=== PATIENT | female | born 1960 | race African-American/Black ===

== ENCOUNTER 2020-01-16 16:19 | Emergency (ER) | payer OTHER ==
[~2020-01-16] VITALS: Ht 152.4 cm; Wt 63.5 kg
[2020-01-16 19:33] LABS: ABSOLUTE NEUTROPHILS 2.8 thou/uL (1.4-8.2); BASOPHILS 1.8 % (0.0-2.0); EOSINOPHILS 2.9 % (0.0-3.0); HEMATOCRIT 36.8 % (37.0-47.0); HEMOGLOBIN 12.1 gm/dL (12.0-15.0); LYMPHOCYTES 43.2 % (24.0-44.0); MCH 27.2 pg (26.0-34.0); MCV 82.5 fL (80.0-100.0); MONOCYTES 3.9 % (1.0-8.0); PLATELET COUNT 241 thou/uL (150-400); POLYS 48.2 % (36.0-66.0); RBC 4.46 mil/uL (4.20-5.00); WBC 5.9 thou/uL (4.0-11.0)
[2020-01-16 19:39] LABS: ANION GAP 10 mmol/L (7-16); BUN 35 mg/dL (7-18); CALCIUM 8.6 mg/dL (8.5-10.1); CHLORIDE 106 mmol/L (98-107); CO2 25 mmol/L (21-32); CREATININE 2.6 mg/dL (0.6-1.0); GLUCOSE 86 mg/dL (74-106); POTASSIUM 4.6 mmol/L (3.5-5.1); SODIUM 141 mmol/L (136-145)
[2020-01-16 19:48] LABS: TROPONIN-I <0.06 ng/mL (<0.06)
[2020-01-16] MEDS ORDERED: LASIX 40 MG TAB40 MG PO (21:02)
[2020-01-16 21:09] VITALS: BP 184/112
--- NOTE | 2020-01-17 07:45 | EKG ---
[facility] [place] [address] ELECTROCARDIOGRAM REPORT Name: DELL MANDUJANO Room #: DEP [facility]#: [id number] Admission: 01/16/20 Attend Phys: Discharge: 01/16/20 Date of : 56 Report #: [id number] THIS REPORT FOR: cc: Nate Morel MD, John MD Lundgren,Madhu Guerin MD [facility] ~ THIS REPORT FOR: //name// [facility] ED Test Date: 2020-01-16 Test Time: 20:04:14 Pat Name: DELL MANDUJANO Department: Room: Gender: F Home Care Chaplain: : 1960 Requested By: Roly Chirinos Order Number: [id number] MD: Madhu Carrasco Measurements Intervals [place] Rate: 72 P: 59 TN: 168 QRS: -26 QRSD: 89 T: 48 QT: 435 QTc: 477 Interpretive Statements Sinus rhythm Poor R wave progression No previous ECG available for comparison Electronically Signed On 01-17-2020 7:44:51 CDT by Madhu Carrasco [email or web address] <ELECTRONICALLY SIGNED> By: Madhu Carrasco MD, [facility] 01/17/20 0744 03 03 Madhu Carrasco MD, FACC /EPI
== END 2020-01-16 21:09 | disposition left against medical advice (07) ==
LOC: ER 16:19
PROVIDERS: Emergency Medicine
DX: I16.0 Hypertensive urgency (principal); N17.9 Acute kidney failure, unspecified; E11.9 Type 2 diabetes mellitus without complications; R22.43 Localized swelling, mass and lump, lower limb, bilateral; F17.210 Nicotine dependence, cigarettes, uncomplicated

== ENCOUNTER 2020-02-08 16:11 | Inpatient (IN) | payer OTHER ==
[~2020-02-08] VITALS: Ht 149.9 cm; Wt 51.9 kg
[~2020-02-08 16:11] MED LIST: LASIX 40 MG TAB40 MG PO
[2020-02-08 16:20] VITALS: BP 181/118
[2020-02-08 16:58] LABS: BASOPHILS 0.9 % (0.0-2.0); EOSINOPHILS 2.1 % (0.0-3.0); HEMOGLOBIN 12.1 gm/dL (12.0-15.0); MCHC 32.5 g/dL (28.0-37.0)
[2020-02-08 17:00] LABS: ABSOLUTE NEUTROPHILS 3.3 thou/uL (1.4-8.2); HEMATOCRIT 37.3 % (37.0-47.0); LYMPHOCYTES 46.2 % (24.0-44.0); MCV 83.1 fL (80.0-100.0); MONOCYTES 5.6 % (1.0-8.0); POLYS 45.2 % (36.0-66.0); RBC 4.49 mil/uL (4.20-5.00); WBC 10.7 thou/uL (4.0-11.0)
[2020-02-08] MEDS ORDERED: ROSUVASTATIN CA10 MG PO ×2 (17:04)
[2020-02-08] MEDS ORDERED: CLONIDINE HCL0.1 MG PO ×2 (17:04)
[2020-02-08] MEDS ORDERED: NORVASC5 MG PO ×2 (17:04)
[2020-02-08] MEDS ORDERED: TRADJENTA5 MG (17:04)
[2020-02-08] MEDS ORDERED: HYDROCHLOROTHIA25 M2 PO ×2 (17:04)
[2020-02-08] MEDS ORDERED: LISINOPRIL40 MG PO ×2 (17:04)
[2020-02-08 17:05] LABS: ANION GAP 13 mmol/L (7-16); BUN 60 mg/dL (7-18); CHLORIDE 107 mmol/L (98-107); CO2 23 mmol/L (21-32); CREATININE 3.2 mg/dL (0.6-1.0); GLUCOSE 97 mg/dL (74-106); POTASSIUM 5.4 mmol/L (3.5-5.1); SODIUM 143 mmol/L (136-145)
[2020-02-08] MEDS ORDERED: PROAIR HFA8.5 GM INH (17:05)
[2020-02-08 17:11] LABS: APTT 21.5 Seconds (24.5-32.8); PROTIME 9.6 Seconds (9.3-11.4)
[2020-02-08 17:14] LABS: ALBUMIN 2.9 g/dL (3.4-5.0); SGOT 19 U/L (15-37); SGPT 14 U/L (30-65); TOTAL BILIRUBIN 0.3 mg/dL (0.2-1.0); TOTAL PROTEIN 6.9 g/dL (6.4-8.2); TROPONIN-I <0.06 ng/mL (<0.06)
[2020-02-08 17:24] LABS: PLATELET COUNT 218 thou/uL (150-400)
[2020-02-08 19:35] VITALS: BP 182/95
--- NOTE | 2020-02-08 19:39 | NUR ---
TRAMAINE RASMUSSENTON-DAUGHTER AT BEDSIDE [phone]
[2020-02-08 19:41] VITALS: BP 193/100
[2020-02-08 21:10] VITALS: BP 228/109
--- NOTE | 2020-02-08 23:00 | NUR ---
PATIENT ARRIVAL TO CCU VIA CART FROM ED, DENIES PAIN, INITIAL NIHSS CONDUCTED, DGT AT BEDSIDE TO ANSWER QUESTIONS
[2020-02-09] VITALS (53 sets, daily range): BP systolic 136–246; BP diastolic 69–113
[2020-02-09 04:06] LABS: GLYCOHEMOGLOBIN (HGB A1C) 5.7 % (4.8-5.6)
[2020-02-09 05:42] LABS: HEMATOCRIT 37.9 % (37.0-47.0); HEMOGLOBIN 12.3 gm/dL (12.0-15.0); MCH 26.8 pg (26.0-34.0); MCHC 32.4 g/dL (28.0-37.0); MCV 82.8 fL (80.0-100.0); RBC 4.58 mil/uL (4.20-5.00); RDW 12.9 % (10.5-14.5)
[2020-02-09 06:08] LABS: ANION GAP 15 mmol/L (7-16); BUN 54 mg/dL (7-18); CALCIUM 9.4 mg/dL (8.5-10.1); CHLORIDE 107 mmol/L (98-107); CHOLESTEROL 244 mg/dL (<200); CO2 19 mmol/L (21-32); CREATININE 2.9 mg/dL (0.6-1.0); GLUCOSE 89 mg/dL (74-106); HDL CHOLESTEROL 80 mg/dL (>40); LDL CHOLESTEROL 135 mg/dL (<100); MAGNESIUM 1.9 mg/dL (1.8-2.4); SODIUM 141 mmol/L (136-145); TC:HDL 3.1 Ratio (Not establshd); TRIGLYCERIDE 146 mg/dL (<150); VLDL 29 mg/dL (<40)
[2020-02-09 06:10] LABS: POTASSIUM 4.2 mmol/L (3.5-5.1); SERUM ASSESSMENT Clear
--- NOTE | 2020-02-09 07:17 | NUR ---
ASSUMED PT CARE AT 0340 FROM CCU. PT DAVID ORIENTED TO SELF. NIH STROKE SCALE SCORED, HX OF DEMENTIA NOTED FROM H&P NOTES, BP ELEVATED. PT STARTED ON CARDENE GTT AT 0356. BP BEGAN TRENDING DOWN. PT IS INCONTINENT FOR URINE X2, ORDER FOR HUGGINS RECIEVED THIS AM. PT BECAME INCREASINGLY CONFUSED THIS AM AROUND 6AM STATING THAT SHE WANTS TO GO HOME, STARTED PICKING AT HER TELE PATCHES, 02 SAT PROBE, AND WAS TRYING TO GET OUT OF BED. DENISE JOHN NOTIFIED AND NEW ORDERS RECIEVED. PT APPEARS TO BE SETTLED IN BED NOW. WILL CONTINUE TO MONITOR.
--- NOTE | 2020-02-09 07:40 | EKG ---
[facility] [place] [address] ELECTROCARDIOGRAM REPORT Name: DELL MANDUJANO Room #: 245-P ADM IN M.R.#: [id number] Admission: 02/08/20 Attend Phys: Khoi Doe MD Discharge: Date of : 56 Report #: [id number] THIS REPORT FOR: cc: Nate Morel MD, John MD Santiago,[employer] ~ THIS REPORT FOR: //name// [facility] ED Test Date: 2020-02-08 Test Time: 16:25:29 Pat Name: DELL MANDUJANO Department: Room: [facility] Gender: F Building Principal: NO : 1960 Requested By: Tom Valadez Order Number: [id number] MD: Warner Swan Measurements Intervals [place] Rate: 54 P: 72 CT: 182 QRS: -15 QRSD: 106 T: 26 QT: 457 QTc: 434 Interpretive Statements Sinus rhythm Borderline left axis deviation Compared to ECG 01/16/2020 20:04:14 Poor R-wave progression no longer present Electronically Signed On 02-09-2020 7:39:50 CDT by Warner Swan [email or web address] <ELECTRONICALLY SIGNED> By: Warner Swan MD, FACC 02/09/20 0739 1625 1625 Warner Swan MD, [facility] /EPI
--- NOTE | 2020-02-09 09:22 | NUR ---
PER DEPT POLICY, Pilar BLOCK DEFERRED THIS A.M. S/P TX FROM CCU TO ICU. SPOKE W/RN, PT TO GO LATER FOR MRI. NEW ORDERS REQUESTED ONCE PT IS DEEMED APPROPRIATE TO PARTICIPATE IN FUNCTIONAL MOBILITY EVALUATION.
--- NOTE | 2020-02-09 11:33 | 2DMMODE ---
[facility] [place] [address] 2 D/M-MODE ECHOCARDIOGRAM Name: DELL MANDUJANO Room #: 245-P ADM IN M.R.#: [id number] Admission: 02/08/20 Attend Phys: Khoi Doe MD Discharge: Date of : 56 Report #: [id number] THIS REPORT FOR: cc: Nate Morel MD, John MD Santiago, Patrick MD [facility] ~ APPROVED REPORT Study performed: 02/09/2020 10:30:03 EXAM: Comprehensive 2D, Doppler, and color-flow Echocardiogram Patient Location: ICU Room #: 245 Status: routine BSA: 1.25 HR: 84 bpm BP: 173/83 mmHg Rhythm: NSR Other Information Study Quality: Good Indications [place]. Hx: HTN, HLP, DM, tob. Echo Enhancing Agent Comments: Patient had no IV access for a bubble study. 2D Dimensions RVDd: 35.06 mm IVSd: 12.00 (7-11mm) LVOT Diam: 20.00 (18-24mm) LVDd: 30.00 mm PWd: 12.00 (7-11mm) LVDs: 18.00 (25-40mm) Aortic Root: 27.55 mm Volumes Left Atrial Volume (Systole) Single Plane 4CH: 26.05 mL Single Plane 2CH: 31.90 mL LA ESV Index: 25.00 mL/m2 Aortic Valve AoV Peak Bryson.: 1.58 m/s [facility] [address] [place] [address] 2 D/M-MODE ECHOCARDIOGRAM Name: DELL MANDUJANO CHAVARRIA Room #: 245-P [facility] IN M.R.#: [id number] Admission: 02/08/20 Attend Phys: Khoi Doe, Discharge: Date of : 56 Report #: [id number] AO Peak Gr.: 10.01 mmHg LVOT Max P.89 mmHg LVOT Max V: 1.40 m/s BESS Vmax: 2.80 cm2 Mitral Valve E/A Ratio: 0.8 MV Decel. Time: 261.23 ms MV E Max Bryson.: 0.63 m/s MV A Bryson.: 0.82 m/s MV PHT: 75.76 ms IVRT: 100.35 ms Pulmonary Valve PV Peak Bryson.: 1.39 m/s PV Peak Gr.: 7.72 mmHg Pulmonary Vein P Vein S: 0.36 m/s P Vein A: 0.24 m/s P Vein D: 0.42 m/s P Vein A Dur.: 96.9 msec P Vein S/D Ratio: 0.86 Tricuspid Valve RAP Estimate: 5.00 mmHg Left Ventricle The left ventricle is normal size. There is normal LV segmental wall motion. Mild concentric left ventricular hypertrophy. Left ventricular systolic function is hyperdynamic. LVEF is 65-70%. Mild diastolic dysfunction is present. Right Ventricle The right ventricle is normal size. The right ventricular systolic function is normal. Atria The left atrium size is normal. The right atrium size is normal. Aortic Valve Aortic valve is mildly calcified. No aortic regurgitation is present. There is no aortic valvular stenosis. Mitral Valve The mitral valve is normal in structure. There is no mitral valve regurgitation noted. No evidence of mitral valve stenosis. Tricuspid Valve [facility] [place] [address] 2 D/M-MODE ECHOCARDIOGRAM Name: NAZIADELL MAE Room #: 245-P ADM IN M.R.#: [id number] Admission: 02/08/20 Attend Phys: Khoi Doe, Discharge: Date of : 56 Report #: [id number] The tricuspid valve is normal in structure. There is no tricuspid valve regurgitation noted. Unable to assess PA pressure. Pulmonic Valve The pulmonary valve is normal in structure. Trace pulmonic regurgitation. Great Vessels The aortic root is normal in size. Ascending aorta is not well visualized. IVC is normal in size and collapses >50% with inspiration. Pericardium There is no pericardial effusion. <Conclusion> Normal left ventricle size Mild left ventricular concentric hypertrophy Mild diastolic dysfunction Hyperdynamic systolic function, ejection fraction of 65% Normal atrial size Mild aortic valve calcification without stenosis No pericardial effusion <ELECTRONICALLY SIGNED> By: Warner Swan MD, FACC 02/09/20 113 31 31 Warner Swan MD, FAC /INF
[2020-02-09 13:32] LABS: URINE BILIRUBIN NEGATIVE (Negative); URINE BLOOD TRACE (Negative); URINE CLARITY CLEAR; URINE COLOR YELLOW; URINE GLUCOSE-RANDOM* NEGATIVE (Negative); URINE KETONES NEGATIVE (Negative); URINE LEUKOCYTES NEGATIVE (Negative); URINE NITRITE NEGATIVE (Negative); URINE PROTEIN (DIPSTICK) 2+ (Negative); URINE UROBILINOGEN 0.2 E.U./dl (0.2-1.0)
[2020-02-09 13:44] LABS: CASTS None Seen /LPF (None Seen); SQUAMOUS 0-3 Few /LPF (0-3)
[2020-02-09 13:45] LABS: CRYSTALS None Seen /LPF (None Seen); URINE RBC 0-2 Rare /HPF (0-2); URINE WBC None Seen /HPF (0-5)
[2020-02-09 13:46] LABS: BACTERIA None Seen /HPF (None Seen)
--- NOTE | 2020-02-09 14:20 | NUR ---
chart review. cm unable to with raymond. cm called spouse no answer. noted in chart home health noted some facial changes. pt past h/o cva. 5n eval. she is on service with [facility]. no anticipated dc over the weekend. 5n consult. will cont following as needed for dc needs.
--- NOTE | 2020-02-09 18:36 | NUR ---
INFORMED DAUGHTER OF MRI FINDINGS. NIH OF 14 THROUGHOUT AFTERNOON. NICARDENE STOPPED.
[2020-02-10] VITALS (70 sets, daily range): BP systolic 124–222; BP diastolic 70–104
[2020-02-10 04:25] LABS: HEMATOCRIT 36.7 % (37.0-47.0); HEMOGLOBIN 12.1 gm/dL (12.0-15.0); MCH 27.4 pg (26.0-34.0); MCV 82.9 fL (80.0-100.0); RBC 4.42 mil/uL (4.20-5.00); WBC 6.1 thou/uL (4.0-11.0)
[2020-02-10 04:45] LABS: CALCIUM 9.1 mg/dL (8.5-10.1); CREATININE 2.6 mg/dL (0.6-1.0); MAGNESIUM 1.6 mg/dL (1.8-2.4); POTASSIUM 4.4 mmol/L (3.5-5.1)
--- NOTE | 2020-02-10 09:15 | NUR ---
ASSESSMENTS AND INTERVENTIONS DOCCUMENTED. DR. FARLEY ROUNDING ON PATIENT THIS AM AROUND 0830, ORDERS TO KEEP BLOOD PRESSURE PARAMETERS CHANGED. PATIENT HYPERTENSIVE, RN TO CALL HOSPITALIST TO OBTAIN ORDERS.
[2020-02-11] VITALS (86 sets, daily range): BP systolic 140–181; BP diastolic 70–97
[2020-02-11 04:38] LABS: HEMATOCRIT 38.4 % (37.0-47.0); HEMOGLOBIN 12.7 gm/dL (12.0-15.0); MCH 27.4 pg (26.0-34.0); MCHC 33.1 g/dL (28.0-37.0); MCV 82.7 fL (80.0-100.0); RBC 4.65 mil/uL (4.20-5.00); RDW 13.3 % (10.5-14.5); WBC 6.3 thou/uL (4.0-11.0)
[2020-02-11 04:52] LABS: CALCIUM 9.4 mg/dL (8.5-10.1); CREATININE 2.3 mg/dL (0.6-1.0); MAGNESIUM 2.2 mg/dL (1.8-2.4); POTASSIUM 4.2 mmol/L (3.5-5.1)
[2020-02-12] VITALS (20 sets, daily range): BP systolic 121–177; BP diastolic 56–94
--- NOTE | 2020-02-12 03:12 | NUR ---
ASSUMED PT CARE AT 0115. VSS. PT A&O TO SELF ALONE, PT STATED FEELING TIRED AND WANTING TO SLEEP. RN MADE ROOM CONDUSIVE FOR PT TO FALL ASLEEP. PT RESTING WELL NOW. PT STILL ON CARDENE GTT. VSS. WILL CONTINUE TO CLOSELY MONITOR
[2020-02-12 04:48] LABS: HEMOGLOBIN 12.4 gm/dL (12.0-15.0); MCH 27.1 pg (26.0-34.0); MCHC 32.7 g/dL (28.0-37.0); MCV 82.8 fL (80.0-100.0); RBC 4.59 mil/uL (4.20-5.00); RDW 13.2 % (10.5-14.5); WBC 8.8 thou/uL (4.0-11.0)
[2020-02-12 05:09] LABS: ALBUMIN 2.4 g/dL (3.4-5.0); CREATININE 2.3 mg/dL (0.6-1.0); POTASSIUM 4.4 mmol/L (3.5-5.1)
--- NOTE | 2020-02-12 13:13 | NUR ---
SPOKE WITH DAUGHTER MAXINE AT 0930. UPDATED HER ON PATIENT CONDITON AFTER VERIFING SECURITY CODE. SHE STATED THAT SHE HAD TRIED TO CALL HER MOTHER AND COULDN'T REACH HER. TOLD HER WE WERE OFF UNIT FOR CT OF CHEST AND VIDEO SWALLOW STUDY BUT SHE HAS HER PHONE NOW IF SHE WANTS TO CALL HER.
--- NOTE | 2020-02-12 14:47 | NUR ---
chart review. remain on iv medication gtts. cm spoke with spouse gerson, education on dcp, 5n acute rehab following, home health and skilled rehab. my daughter visits and then i get calls before and after work, just want her bp to come down and her to get better. thank you per spouse gerson.
[2020-02-12 15:22] LABS: URINE BILIRUBIN NEGATIVE (Negative); URINE BLOOD TRACE (Negative); URINE CLARITY CLEAR; URINE COLOR YELLOW; URINE GLUCOSE-RANDOM* NEGATIVE (Negative); URINE KETONES NEGATIVE (Negative); URINE LEUKOCYTES NEGATIVE (Negative); URINE NITRITE NEGATIVE (Negative); URINE PROTEIN (DIPSTICK) 2+ (Negative); URINE SPECIFIC GRAVITY >= 1.030 (1.005-1.035); URINE UROBILINOGEN 0.2 E.U./dl (0.2-1.0)
[2020-02-12 15:30] LABS: URINE PROTEIN-RANDOM* 368.3 mg/dL (<11.9)
[2020-02-12 15:47] LABS: BACTERIA 1-9 Few /HPF (None Seen); CASTS None Seen /LPF (None Seen); CRYSTALS None Seen /LPF (None Seen); SQUAMOUS 0-3 Few /LPF (0-3); URINE RBC None Seen /HPF (0-2); URINE WBC 6-15 Few /HPF (0-5)
--- NOTE | 2020-02-12 18:12 | NUR ---
Took over care of patient at 0645. Patient confused and thinks she is 18 years old and was looking for her baby. Daughter at bedside from [id number] Zapien ordered psych consult at 1600. Patient had EEG at bedside at 1700. Patient's confusion and abilities ebs and flows. One minute she can feed herself and tell you she needs to use the restroom and the next minute she is super confused and couldn't feed herself.
--- NOTE | 2020-02-12 18:48 | NUR ---
REC PT TRANSFERRING FROM ICU AT 1847, SHE IS IN [facility], HOOKED UP TO SCD'S, SHOWED HER HOW TO USE CALL LIGHT, SET BED ALARM AND SET UP FOOD TRAY. KNOWS BDATE, SPOUSES NAME, HOSPITAL, PRESIDENT TANVIR. JUST TRIED TO PUT HER ICE TEA ON HER FOOD, REDIRECTS OKAY. WILL GIVE REPORT AND SET UP ON MONITOR, REPORTS OF NSR
[2020-02-13 01:15] VITALS: BP 184/89
[2020-02-13 04:45] VITALS: BP 131/50
--- NOTE | 2020-02-13 04:46 | NUR ---
PT ALERT TO SELF, REMAINS CONFUSED CAN BE REDIRECTED SOMETIMES AND THEN AGAIN A FEW MINUTES LATER BECOMING MORE ARGUEMENTATIVE, KEEPS WANTING TO LEAVE AND CUSTOMER PROGRAM MANAGER HER BABY, HUGGINS WITH YELLOW URINE, TOLERATING PUREED DIET AND NECTAR THICK LIQUIDS, VSS WITH BP IN R ARM 131/50, NIH SCORE 10, NO C/O PAIN, REMAINS 97% ON RA, WILL CON'T TO MONITOR PER PPOC.
[2020-02-13 05:01] LABS: ALBUMIN 2.5 g/dL (3.4-5.0); CALCIUM 8.8 mg/dL (8.5-10.1); CREATININE 2.2 mg/dL (0.6-1.0); PHOSPHORUS 3.6 mg/dL (2.5-4.9); POTASSIUM 4.2 mmol/L (3.5-5.1)
[2020-02-13 09:15] VITALS: BP 172/92
[2020-02-13] MEDS ORDERED: CLOPIDOGREL75 MG PO ×2 (12:10)
[2020-02-13] MEDS ORDERED: AMLODIPINE BESY10 MG PO ×2 (12:11)
[2020-02-13] MEDS ORDERED: COZAAR 25 MG TA25 M1 PO ×2 (12:12)
[2020-02-13] MEDS ORDERED: LIPITOR40 MG PO ×2 (12:12)
[2020-02-13] MEDS ORDERED: ASA81BEC PO ×2 (12:13)
[2020-02-13 12:32] VITALS: BP 174/91
--- NOTE | 2020-02-13 15:06 | NUR ---
ASSUMED CARE PT SHIFT CHANGE. ASSESSMENTS CHARTED.MEDS GIVEN PER JUN. PT ALERT AND ORIENTED TO SELF, CONFUSED. PT ABLE TO ANSWER SIMPLE QUESTIONS. PT UP X1 ASSIST TOLERATING WELL. PT EATING PUREED DIET WELL AND DRINKING THIN LIQUIDS WITHOUT S/SX OF ASPIRATION. DC TO REHAB THIS SHIFT, COMMUNICATED PLAN WITH PT AND DAUGHTER. REHAB ADMISSION LIASON SPOKE WITH ANTOINETER AND PT IN DETAIL. TELE REMOVED. PT LEFT UNIT WITH ALL BELONGINGS.
--- NOTE | 2020-02-13 16:22 | NUR ---
[facility] INDICATED THAT THEY WERE ABLE TO ACCEPT PT THIS DAY. CM CALLED AND SPOKE WITH PT'S SPOUSE AND HER DTR. THEY INDICATED THAT PT HAD BEEN INDEPENDENT WITH MOBILITY UP UNTIL HER ADMISSION. THEY INDICATED THAT THEY HAD ASSISTED PT WITH BATHING, DRESSING, AND FEEDING. PT'S SON TONY IS WITH PT FROM 4AM -6PM. PT'S SPOUSE IS THERE AFTER THAT. PT'S DTR ALSO ASSISTS WITH PT'S CARES BUT SHE ALSO WORKS. THEY INDICATED THAT PT HAD A NURSE THROUGH LOCATED WITHIN [facility] THAT HAD BEEN COMMING TO SEE PT DIRECTOR OF DIRECT MARKETING. THEY INDICATED THAT PT HAS 24/7 SUPERVISION IN THE HOME. THEY ARE INTERESTED IN MEDICAID HCBS IN THE FUTURE FOR SON TO BE PAID CAREGIVER. THEY ARE RECEPTIVE WITH PT GOING TO 5N THIS DAY. NO OTHER CM INTERVENTION INDICATED. CASE CLOSED.
--- NOTE | 2020-02-16 08:12 | HC ---
[facility] [place] [address] CONSULTATION Name: DELL MANDUJANO Room #: 206-P [facility] IN M.R.#: [id number] Admission: 02/08/20 Attend Phys: Khoi Doe MD Discharge: 02/13/20 Date of : 56 Report #: [id number] THIS REPORT FOR: cc: Nate Morel MD, John MD Al-Absi,Marcus Short MD ~ REASON FOR CONSULTATION: Elevated creatinine. REASON FOR PRESENTATION: Brought by her family member as she was noted to have some drooping of the right side of the patient's face by the home health people. HISTORY OF PRESENT ILLNESS: This is obtained from the medical chart. The patient is not able to provide me with any history. As per the medical record, she is a 59-year-old with solitary kidney. She is known to have hypertension. There seems to be some issues with the patient's mental status. She was also found to have some symptoms concerning for a stroke by the home health nurse and was sent to further evaluate to the Emergency Room. Prior records showed that the patient's creatinine was actually 2.6 back in 01/16/2020. When the patient arrived yesterday, her creatinine was 3.2. I was consulted to manage her acute, chronic kidney disease issues. The patient was in the ER on 01/15 with swollen legs. She had left AMA. MEDICATIONS: 1. Unknown if the patient is taking those medications are number that is listed that the patient is on Clonidine. 2. Amlodipine. 3. Hydrochlorothiazide. 4. Tradjenta. 5. Crestor. PAST MEDICAL HISTORY: 1. Hypertension. 2. Diabetes mellitus as per the medical record. 3. Solitary kidney status. FAMILY HISTORY: Unobtainable given the patient's current mental status. SOCIAL HISTORY: Unobtainable given the patient's current mental status. REVIEW OF SYSTEMS: Unobtainable given the patient's current mental status. ALLERGIES LISTED: ASPIRIN. PHYSICAL EXAMINATION: VITAL SIGNS: Temperature 36.6, respiratory rate is 26, pulse rate is 93, blood [facility] [address] [place] [address] CONSULTATION Name: DELL MANDUJANO Room #: 206-P [facility] IN [facility]#: [id number] Admission: 02/08/20 Attend Phys: Khoi Doe MD Discharge: 02/13/20 Date of : 56 Report #: [id number] pressure is 160/86. HEAD AND NECK: No jugular venous distention. CHEST: Decreased air entry bilaterally. CARDIOVASCULAR: No rub detected. ABDOMEN: Soft. EXTREMITIES: Lower extremities, no edema. NEUROLOGICAL: The patient is completely disoriented to time, place, and person. LABORATORY VALUES: Revealed the following: Sodium 141, BUN is 28, creatinine is 2.3. Hemoglobin is 12.7. UA with +2 protein. IMAGING STUDIES: Her MRI was consistent with early subacute infarct in the right basal ganglia and head of the caudate. MRI of the lumbar spine revealed a missing left kidney. ASSESSMENT, IMPRESSION AND PLAN: 1. Chronic kidney disease. 2. Uncontrolled hypertension due to noncompliance. 3. New subacute infarct. 4. As for now, we will continue to monitor the patient's renal function. Her creatinine is already improving and seems to be back to where it should be. I am not really sure what the patient's baseline kidney function is. However, she does have an elevated creatinine based on previous values back from January of this year where her creatinine was 2.6. 5. With her acute stroke, we will aim for nonaggressive blood pressure control at this time. 6. Continue to avoid nephrotoxins. 7. Neurological team is involved in the patient's acute and subacute infarct and will defer the management of the brain related issues to them. 8. We will continue to follow during her hospital stay and adjust the medications accordingly. <ELECTRONICALLY SIGNED> By: Marcus Arauz MD 02/16/20 0812 8 0942 Mracus rAauz MD /nt
--- NOTE | 2020-02-18 12:43 | HC ---
[facility] [place] [address] CONSULTATION Name: DELL MANDUJANO Room #: 206-P [facility] IN M.R.#: [id number] Admission: 02/08/20 Attend Phys: Khoi Doe MD Discharge: 02/13/20 Date of : 56 Report #: [id number] THIS REPORT FOR: cc: Nate Morel MD, John MD Khosla,Tyrel Quiros MD ~ DATE OF SERVICE: 02/08/2020 HISTORY OF PRESENT ILLNESS: This is a 59-year-old female patient who is unable to provide any history. The patient's daughter is here. The patient does not live with the daughter, but they visit her every day. She has other family support also. From all indication, it looks like she has underlying dementia. She usually does not remember months or days. She is also becoming weak from last several weeks. Daughter estimate it to be about 3 weeks. As far as memory is concerned that is for at least several months and maybe longer. She says her doctor thinks she had a stroke. Her blood pressure is high and it usually runs high. I do not know what symptom that she had for which she was diagnosed as a stroke. REVIEW OF SYSTEMS: A 14-point review of system was carried out today. She was noticed to have some right facial weakness. She has pretty significant weakness of both lower extremities going on for a long time, looks like she has advanced dementia. Later on during the examination, she will barely do anything. She has hypertensive emergency. Her family says that she has severe ALLERGY TO ASPIRIN. That is the 14-point review of system, which I can get in this patient. Because of the patient's dementia, further history is not possible. She has only one kidney. Apparently, there is a history of diabetes. PAST MEDICAL HISTORY: Positive for stroke, further description is not clear. FAMILY HISTORY: Negative for early age stroke. SOCIAL HISTORY: She has a history of smoking. PHYSICAL EXAMINATION: Difficult. She says a word here and there, but did not say much to me. When I asked her what month it is, she does not remember, but she does not remember even in her baseline. She does not follow simple commands on a persistent basis to do a good neurological examination. I cannot tell about the facial weakness in this patient. She moves both sides, whether that is symmetrical or not is not clear. She moved upper extremities. She also moved some the lower extremities. She did not cooperate with the position sense. She did not relax for me to do the tone or reflexes. There is no meningeal sign. There is no carotid bruit. No respiratory difficulty. No cardiac abnormality. Pulses are difficult to feel. She can hear it, but she [facility] [address] [place] [address] CONSULTATION Name: DELL MANDUJANO CHAVARRIA Room #: 206-P DIS IN M.R.#: [id number] Admission: 02/08/20 Attend Phys: Khoi Doe MD Discharge: 02/13/20 Date of : 56 Report #: [id number] follows commands rarely. Blood pressure is 189/95, respirations 21, pulse is 57. LABORATORY DATA: Indicated white count of 10.7 and she is markedly hypertensive. She is moderately built individual who does not have any dysmorphic features of eyes, ears and face. CT scan demonstrated chronic changes. MRI is pending. IMPRESSION: Pretty difficult to form in this patient, but she has a lot of problem. She was noticed to have a facial palsy that is not very prominent, but she has what looks like advanced dementia and she moves her legs very little if she moves at all and she is weak in the arms also. She has multiple metabolic problems including GFR of only 18. She left against medical advice the last time as I understand. This patient needs systemic workup. She needs neurological workup. We will start with MRI if she cooperates and I will get a carotid Doppler. She may need spine workup also. Thank you very much for this referral and if you have any question, please feel free to contact me. <ELECTRONICALLY SIGNED> By: Tyrel Call MD 02/18/20 1243 12 49 Tyrel Call MD /nt
== END 2020-02-13 15:05 | DRG 64 ==
LOC: ER 16:11 → EROBS 17:51 → ICU 17:51 → 2N 20:46 → ICU 02-09 03:57 → 2N 02-12 19:29
PROVIDERS: Emergency Medicine; Hospitalist; ADMIT Internal Medicine; ATTEND Internal Medicine
DX: I63.9 Cerebral infarction, unspecified (principal); N17.0 Acute kidney failure with tubular necrosis; I69.354 Hemiplegia and hemiparesis following cerebral infarction affecting left non-dominant side; E44.0 Moderate protein-calorie malnutrition; I67.4 Hypertensive encephalopathy; F17.210 Nicotine dependence, cigarettes, uncomplicated; E11.22 Type 2 diabetes mellitus with diabetic chronic kidney disease; I12.9 Hypertensive chronic kidney disease with stage 1 through stage 4 chronic kidney disease, or unspecified chronic kidney disease; N18.9 Chronic kidney disease, unspecified; F03.90 Unspecified dementia, unspecified severity, without behavioral disturbance, psychotic disturbance, mood disturbance, and anxiety; Z88.8 Allergy status to other drugs, medicaments and biological substances; Z68.23 Body mass index [BMI] 23.0-23.9, adult; Z79.899 Other long term (current) drug therapy; Z79.82 Long term (current) use of aspirin
CPT/HCPCS: 10081; 10203

== ENCOUNTER 2020-02-13 14:15 | Inpatient (IN) | payer OTHER ==
[~2020-02-13] VITALS: Ht 149.9 cm; Wt 54.1 kg
[~2020-02-13 14:15] MED LIST changes: +AMLODIPINE BESY10 MG PO; +ASA81BEC PO; +CLONIDINE HCL0.1 MG PO; +CLOPIDOGREL75 MG PO; +COZAAR 25 MG TA25 M1 PO; +HYDROCHLOROTHIA25 M2 PO; +LIPITOR40 MG PO; +LISINOPRIL40 MG PO; +NORVASC5 MG PO; +PROAIR HFA8.5 GM INH; +ROSUVASTATIN CA10 MG PO; +TRADJENTA5 MG
[2020-02-13 15:15] VITALS: BP 184/91
--- NOTE | 2020-02-13 15:44 | NUR ---
1515 PATIENT ADMITTED TO ROOM 513. PATIENT ARRIVED VIA W/C. PATIENT IS ALERT AND ORIENTED TO SELF ONLY . PATIENT HAS SLIGHT LEFT FACIAL DROOP. MILD LEFT SIDED WEAKNESS. PATIENT HAS HUGGINS TO DD, DRAINING JOANNE COLORED URINE. PATIENT HAS S.L. IN HER NECK AREA. SITE WITHOUT REDNESS OR SWELLING. FALL AND SAFETY PROTOCOLS IN PLACE. DENIES PAIN. PT/OT/ST EVAL TO BE DONE IN THE A.M. DAUGHTER AT [facility]. CALL LIGHT IN REACH. WILL CONTINUE TO MONITER.
--- NOTE | 2020-02-13 16:37 | NUR ---
BP 184/91, AND HOSPITALIST WAS NOTIFIED PER COTY SANTOS. ORDER RECEIVED TO ADMINISTER LOSATRTAN 25 MG PO X 1 DOSE NOW AND RECHECK BP 1 HOUR LATER. THIS WAS GIVEN AT 1625, AFTER PT ASSISTED TO BR TO HAVE A BM, AND ASSISTED BACK TO CHAIR. PT'S DTR IS AT HER SIDE CURRENTLY. PT IS CONFUSED, STATING THAT SHE NEEDS TO GO CATCH THE BUS. DTR ESILY REDIRECTS HER.
--- NOTE | 2020-02-13 16:39 | NUR ---
chart review. pt new to acute rehab. cm unable to visit with raymond rt working with bedside nurse. cm spoke with daughter via phone call. pt lives at home with spouse, he works outside the home, he gets phone call on updates and daughter is designated visitor. daughter does not live with raymond or dad. she did not use any dme, she been independent prior to hospital. had home [facility] with [facility]. no stairs everything is on main level. will cont following as needed for dc needs.
[2020-02-13 17:44] VITALS: BP 166/68
[2020-02-13 20:36] VITALS: BP 119/113; BP 199/113
[2020-02-13 21:40] VITALS: BP 188/101
--- NOTE | 2020-02-13 23:35 | NUR ---
PT ALERT, CONFUSED AND RESTLESS AT TIMES. HUGGINS PATENT DRAINING ADEQUATE AMTS CLEAR YELLOW URINE. BP ELEVATED AT START OF SHIFT 199/113. PRN HYDRALAZINE GIVEN AT 2028. BP RECHECKED AT 2140 AND IT WAS 188/101. TYRELL LOVE NP NOTIFIED AND ORDERED FOR BP RECHECK AT MIDNIGHT. BP 191/103 AT 2330. PT PULLED RIJ IV OUT. TYRELL NOTIFIED AND SHE WILL PUT IN ORDERS FOR BP MEDS. PT TAKES MEDS CRUSHED IN APPLESAUCE WITHOUT DIFFICULTY. PT DENIES PAIN OR DISCOMFORT. BED ALARM ON FOR SAFETY. PT EASILY VISIBLE FROM NURSES STATION. PT CHECKED ON MORE FREQUENTLY THAN HOURLY ROUNDS.
[2020-02-14 06:04] LABS: HEMATOCRIT 32.4 % (37.0-47.0); HEMOGLOBIN 10.6 gm/dL (12.0-15.0); MCH 27.2 pg (26.0-34.0); MCHC 32.7 g/dL (28.0-37.0); MCV 83.2 fL (80.0-100.0); RBC 3.9 mil/uL (4.20-5.00); WBC 6.9 thou/uL (4.0-11.0)
[2020-02-14 06:28] LABS: CALCIUM 8.8 mg/dL (8.5-10.1); CREATININE 2.2 mg/dL (0.6-1.0); POTASSIUM 4.2 mmol/L (3.5-5.1)
[2020-02-14 08:00] VITALS: BP 193/99
[2020-02-14 10:20] VITALS: BP 145/85
[2020-02-14 10:47] LABS: FOLIC ACID 4.1 ng/mL (8.6-58.9); TSH 1.404 uIU/mL (0.358-3.740)
--- NOTE | 2020-02-14 13:08 | NUR ---
ASSUMED CARES AT 0700. PT ORIENTED TO PERSON ONLY, CONFUSED AND FORGETFUL. DENIES PAIN AT THIS TIME. BP ELEVATED THIS AM, BP LOWERING MEDS ADMINISTERED, SBP 145 2HRS AFTER ADMINISTRATION WILL CONTINUE TO MONITOR. HUGGINS REMAINS INTACT AND PATENT, PT FIDDLING WITH IT REORIENTED MULTIPLE TIMES. VOIDING TRIAL STARTED AT 1300. ASPIRATION PRECAUTIONS MAINTAINED, PT REMAINS ON PUREED DIET AND TOLERATES WELL. UP WITH 1 MIN-SBA GB AND WALKER. FALL PRECAUTIONS IN PLACE, FREQUENT VISUAL CHECKS. REPORT GIVEN TO RN AT 1300.
--- NOTE | 2020-02-14 15:18 | NUR ---
CARE TRANSFERED TO THIS ACID PUMPER AT 1300HRS, PATIENT ON VOIDING TRIAL, FLOEY TUBING UNCLAMPPED AT 5008HOURS WITH 25ML URIN OUTPUT. PATIENT REMAIN IMPULSIVE, FREQUENTLY ATTEMPTING TO GET OUT OF CHAIR WITHOUT ASSISTANCE, REQUIRES CONSTANT REDIRECTION. ORAL FLUID ENCOURAGED, PATIENT DENIES HAVING PHYSICAL PAIN, SHE IS NOW TAKING A NAP IN A RECLINER. NO SIGN OF ACUTE DISTRESS NOTED AT THIS TIME, CALL LIGHT IN REACH, FALL PRECAUTIONS IN PLACE, WILL CONTINUE TO MONITOR FOR SAFETY.
[2020-02-14 19:37] VITALS: BP 176/97
--- NOTE | 2020-02-14 20:59 | NUR ---
Assumed care on 02/24/20 @ 19:15, seated in sherrill chair watching tv, awake and alert, oriented x1 to person only. HRRR, Lungs CTA, ABD normoactive. Able to take meds crushed in applesauce, cannot swollow docusate whole, opened and administered in applesauce. Transfers to bed at with x1 assist. Lynne catheter draining clear con urine to gravity. Bed alarm set, will continue to monitor as per unit protocol.
[2020-02-15 08:00] VITALS: BP 184/97
--- NOTE | 2020-02-15 12:36 | NUR ---
Assumed care of patient at 0700. Patient is alert and oriented to self. Speaks softly and is difficult to understand. Blood sugar at 82 at breakfast and lunch. BP 184/97, pulse 83. Complained of left anterior ankle pain. Refused medication for pain. Lynne catheter in place. Left sided weakness. Reminded to swallow food since she tends to pocket food. Taking medication crushed with applesauce. Remains on Fall precautions.
[2020-02-15 13:29] VITALS: BP 146/101
[2020-02-15 20:06] VITALS: BP 162/94
--- NOTE | 2020-02-16 03:31 | NUR ---
ASSUMED CARE APPROX 1900 EVENING 02/14. PT SITTING UP IN W/C AT CHANGE OF SHIFT AND SAT AT NURSES STATION UNTIL FALLING ASLEEP. PT ASSISTED INTO BED AND SLEPT WELL UNTIL FEW MINUTES AGO TO GET UP AND REQUESTED TO SIT ON TOILET TO HAVE BM. PT WITH SOFT QUIET VOICE AND PLEASANTLY CONFUSED. HUGGINS TO DD WITH CLEAR YELLOW URINE TO BAG. PT TOOK HS MEDS WITH APPLESAUCE TOLERATING WELL. PT NOW BACK TO BED. BED ALARM ON AND CALL LIGHT IN REACH. WILL CONTINUE TO MONITOR.
[2020-02-16 08:19] VITALS: BP 173/101
--- NOTE | 2020-02-16 14:38 | NUR ---
cm provided update to [facility] as requested.
--- NOTE | 2020-02-16 14:39 | NUR ---
blood pressure reported to be 173/101 on machine initally this AM AT 0745-RECHECKED MANUALLY AND IS 160/90. AM BP MEDICATIONS CRUSHED AND GIVEN IN APPLESAUCE-DOES APPEAR TO POCKET CRUSHED MEDS IN MOUTH AND APPEARED TO SPIT SMALL AMOUNT OF APPLESAUCE INTO COFEE CUP SHE WAS DRINKING OUT OF AND INOT [place] DESPITE STAFF SITTING NEXT TO HER. REQUIRES MULTIPLE PROMPTs verbal queing to COMPLETE BASIC ADLS. REPORTED ABDOMINAL TYPE CRAMPING WHEN QUESTIONED ABOUT PAIN THIS AM-BUT LATER DENIES-BS ACTIVE X4-ABDOMEN SOFT/NON-TENDER. TRANSFEWRS WITH SBA X1, ORIENTED TO NAME ONLY.HUGGINS CATHETOR PATENT DRAINING CLEAR YELLOW URINE
--- NOTE | 2020-02-16 15:37 | NUR ---
BLOOD PRESSURE RECHECK 147/80-RESTING QUIETLY IN BED AT THIS TIME DENIES COMPLAINTS/CONCERNS.
[2020-02-16 15:39] VITALS: BP 147/80
[2020-02-16 19:30] VITALS: BP 142/78
--- NOTE | 2020-02-17 02:29 | NUR ---
02-16-20 CARE TRANSFERRED 1899, OBSERVED PT SUPINE IN BED WATCHING TV. 193 PT AAOX1, VSS, RR EVEN AND NONLABORED ON RA. PT HAS GOOD ROM, BUT NOTED LEFT SIDE WEAKNESS. HUGGINS INTACT, FREE FLOWING, SCANT AMOUNT OF YELLOW URINE NOTED IN BAG. PT DENIES ANY PAIN, BUT REPORTS SHE IS READY TO GO HOME. PT SPEACH OFTEN GARBLED AND DIFFICULTIES FORMULATE THOUGHTS INTO WORDS. PT PRESENTS CONFUSED, BUT COOPERATIVE THROUGHOUT NURSING ASSESSMENT. DURING MEDICATION ADMIN PT HAD NO DIFFICULTIES TAKING MEDICATION CRUSHED IN APPLESAUCE. LATER ASSISTED PT WITH BED POSITION, THEN EMPTY PT HUGGINS BAG OF 350 OF YELLOW URINE, NO SEDIMENT OR FOUL ODOR NOTED. ZERO S/S OF ACUTE DISTRESS NOTED, PT WILL CONTINUE TO BE MONITOR PER 5NR PROTOCOL.
[2020-02-17 07:00] VITALS: BP 185/103
--- NOTE | 2020-02-17 10:12 | NUR ---
ASSUMED CARE AT 0700. PATIENT IS ALERT AND ORIENTEDX1 TO SELF. PATIENT IS CONFUSED and FORGETFUL. PATIENT HAS LEFT SIDED WEAKNESS. UP WITH GAIT BELT AND WALKER AND 2 STAFF. PATIENT UP TO THE DINING ROOM FOR BREAKFAST WITH S.T. PATIENT TOOK MEDS CRUSHED IN APPLESAUCE. HUGGINS TO DD, DRAINING JOANNE COLORED URINE. UP IN W/C AFTER O.T. FALL AND SAFETY PROTOCOLS IN PLACE. PATIENT WAS MAX ASSIST WITH ALL CARES. SHE TRIED EATING THE TOOTHPASTE AND THEN WANTED TO USE TOOTHBRUSH TO CLEAN THE SINK. FALL AND SAFETY PROTOCOLS IN PLACE. DENIES PAIN AT THIS TIME. CONTINUES TO PROGRESS VERY SLOWLY TOWARDS D/C GOALS. WILL CONTINUE TO MONITER.
[2020-02-17 19:13] VITALS: BP 125/71
--- NOTE | 2020-02-18 00:20 | NUR ---
PT LETHARGIC, AROUSED WHEN CLOTHING CHANGED INTO HOSPITAL GOWN BUT WENT RIGHT BACK TO SLEEP. HS MEDS HELD SINCE PT SO LETHARGIC. VSS. HUGGINS PATENT DRAINING ADEQUATE AMTS CLEAR YELLOW URINE. NO APPARENT PAIN. TURNED Q2H. BED ALARM ON FOR SAFETY. PT APPEARS TO BE SLEEPING ON HOURLY ROUNDS.
[2020-02-18 08:00] VITALS: BP 170/92
--- NOTE | 2020-02-18 14:54 | NUR ---
ASSUMED CARE OF PT AT 0700. PT IS A&O TO SELF. IS STABLE. DENIES PAIN. IS ON ROOM AIR. IS UP WITH 1 ASSIST, GB WALKER. FALL PRECAUTIONS & HOURLY ROUNDING CONTINUED THIS SHIFT. LABS REVIEWED. VITALS ASSESSED. PT TAKES MEDS CRUSHED IN APPLE SAUCE. ON PUREED DIET. HUGGINS IN PLACE. TO BE REMOVED TODAY PER REQUEST. PT IS CURRENTLY UP IN CHAIR. FAMILY AT BEDSIDE. CALL LIGHT WITHIN REACH. ALARM ON. WILL CONTINUE TO MONITOR.
[2020-02-18 19:26] VITALS: BP 138/82
--- NOTE | 2020-02-19 01:50 | NUR ---
LEFT SIDED WEAKNESS, TAKING MEDS CRUSHED IN APPLESAUCE FOLLOWED BY A FEW SIPS OF WATER. AGREES WITH HUGGINS REMOVAL, DECLINES OFFER TO MOVE FROM CHAIR TO BED AND IS CURRENTLY SLEEPING IN CHAIR.
--- NOTE | 2020-02-19 05:00 | NUR ---
HUGGINS REMOVED, PERICARE AFTER SMALL BM. TO BED AT THIS TIME
[2020-02-19 07:05] VITALS: BP 185/98
--- NOTE | 2020-02-19 07:13 | NUR ---
ASSUMED CARE OF PT AT 0700. PT IS A&OX1. IS ON ROOM AIR. IS STABLE. DENIES PAIN. HUGGINS IS OUT. PT IS VOIDING ACCORDING TO NOC NUR[facility]. PT IS INCONTINENT TO B&B. HAS LEFT SIDED WEAKNESS. LIMB ALERT ON THE LEFT. IS UP WITH 1 ASSIST, GB, WALKER. FALL PRECAUTIONS & HOURLY ROUNDING CONTINUED THIS SHIFT. LABS REVIEWED. VITALS ASSESSED. PT IS CURRENTLY IN BED. CALL LIGHT WITHIN REACH. WILL CONTINUE TO MONITOR.
[2020-02-19 10:00] VITALS: BP 128/71
--- NOTE | 2020-02-19 14:34 | NUR ---
ASSUMED CARES AT 0800, PT AWAKE, ORIENTED TO PERSON ONLY AND CONFUSED. C/O LOWER BACK PAIN, ACETAMINOPHEN ADMINISTERED. BP ELEVATED THIS AM (185/98) BP LOWERING MEDS ADMINISTERED PER ORDER, BP RECHECKED IN 2HRS WAS 128/71. PT VOIDED *1 THIS AM, BLADDER SCAN DONE. PT VERY SLEEPY AND LETHARGIC SINCE 1030, PARTICIPATED WELL IN PHYSICAL THERAPY BUT UNABLE TO EAT LUNCH SAFELY R/T SLEEP. ASLEEP IN BED FROM 1200, WOKE UP BRIEFLY AT 1400 FOR XRAY, TRIED FEEDING HER AT THIS TIME BUT WAS STILL VERY SLEEPY. UP WITH 1 MIN ASSIST, GB AND WALKER. FREQ VISUAL CHECKS. FALL PRECAUTIONS IN PLACE. CALL LIGHT WITHIN REACH.
--- NOTE | 2020-02-19 14:59 | NUR ---
PATIENT WAS OBSERVED FALLING ASLEEP AT LUNCH AND THEREFORE WAS DEEMED NOT ALERT ENOUGH FOR SAFE PO INTAKE. THEREFORE, SHE WAS ALLOWED TO SLEEP AND NOT FED. NURSING TO OFFER PO INTAKE AFTER SHE RESTS.
[2020-02-19 19:19] VITALS: BP 180/94
[2020-02-19 19:26] LABS: URINE BILIRUBIN NEGATIVE (Negative); URINE BLOOD 1+ (Negative); URINE CLARITY CLEAR; URINE COLOR YELLOW; URINE GLUCOSE-RANDOM* NEGATIVE (Negative); URINE KETONES NEGATIVE (Negative); URINE LEUKOCYTES TRACE (Negative); URINE NITRITE NEGATIVE (Negative); URINE PROTEIN (DIPSTICK) 2+ (Negative); URINE SPECIFIC GRAVITY 1.025 (1.005-1.035); URINE UROBILINOGEN 0.2 E.U./dl (0.2-1.0)
[2020-02-19 19:41] LABS: SQUAMOUS 4-10 Moderate /LPF (0-3); URINE RBC 3-10 Few /HPF (0-2); URINE WBC 0-5 Rare /HPF (0-5)
[2020-02-19 19:42] LABS: CASTS None Seen /LPF (None Seen); CRYSTALS None Seen /LPF (None Seen)
[2020-02-19 20:00] VITALS: BP 174/88
--- NOTE | 2020-02-20 04:22 | NUR ---
Assumed care of patient this pm shift. Patient slept through most of the evening/night. Patient alert to self only. Medications were given crushed in applesauce. Patient was difficult to awaken for medications. Blood pressure elevated. (174/88). Patients affect flat. Medication adherent. Falls precautions in place. Call light within reach. We will continue to monitor per hospital policy.
[2020-02-20 05:20] LABS: ABSOLUTE NEUTROPHILS 3.8 thou/uL (1.4-8.2); BASOPHILS 1.2 % (0.0-2.0); EOSINOPHILS 2.4 % (0.0-3.0); HEMOGLOBIN 11.3 gm/dL (12.0-15.0); LYMPHOCYTES 28.5 % (24.0-44.0); MCH 27.4 pg (26.0-34.0); MCHC 33.4 g/dL (28.0-37.0); MCV 82.3 fL (80.0-100.0); MONOCYTES 6.3 % (1.0-8.0); PLATELET COUNT 338 thou/uL (150-400); POLYS 61.6 % (36.0-66.0); RBC 4.13 mil/uL (4.20-5.00); RDW 12.9 % (10.5-14.5); WBC 6.1 thou/uL (4.0-11.0)
[2020-02-20 05:28] LABS: CALCIUM 9.2 mg/dL (8.5-10.1); CREATININE 2.4 mg/dL (0.6-1.0); POTASSIUM 4.7 mmol/L (3.5-5.1)
[2020-02-20 07:35] VITALS: BP 196/84
[2020-02-20 10:25] VITALS: BP 118/75
--- NOTE | 2020-02-20 10:28 | NUR ---
Alert and orientated X2. Follows commands and assists with turning. Breath sounds slightly coarse. No s/o resp distress. 02sat 95% on RA. Reg HR auscultated. Color pink with brisk capillary refill and palpable peripheral pulses. Incontinent of large amt yellow urine in bed and brief. Active bowel sounds over soft, flat abdomen. Therapist reports that she had BM yesterday. Ate most of breakfast this AM with speech therapist at side. Took meds crushed in ensure pudding.
--- NOTE | 2020-02-20 12:50 | NUR ---
Nutrition: REC obtain new weight. Last weight taken 02/12.
--- NOTE | 2020-02-20 12:50 | NUR ---
team meeting, reccommendation: needs assist during all meals, rt she will shovel in puree food and hold in mouth, not swallowing. better in am, more alert. has uti. dc 02/27 (pt, ot, st, nursing, sw ) with interim , 24 hr point of care technician. will need fww.
[2020-02-20 16:19] VITALS: BP 147/81
[2020-02-20 19:08] VITALS: BP 162/96
--- NOTE | 2020-02-21 01:22 | NUR ---
PATIENT ASSISTED TO BSC FOR SMALL VOID AFTER NOTED TO BE INCONTINENT. TOOK MEDS WITH SMALL BITES OF APPLESAUCE AND SIPS OF THIN LIQUIDS. REQUESTING FISH TO EAT, AND THEN TO BE PUT INTO THE FREEZER FOR LATER, AND THEN TOLD ON THE PHONE THAT SHE HAD BEEN FISHING.
--- NOTE | 2020-02-21 10:28 | NUR ---
FLAT AFFECT. DELAYED VERBAL RESPONSES. ORIENTED TO PERSON/KNOWS IS IN HOSPITAL. WILL RESPOND TO VERBAL QUES BUT REQUIRES MULTIPLE QUES AND STAND BY PHYSICAL ASSIST BEFORE COMPLETING TASK. DID TAKE MAJORITY OF AM MEDICATIONS CRUSHED IN APPLESAUCE AFTER APPROX 2 HRS WILL OPEN MOUTH FOR SMALL BITE AND REFUSE 2ND BITE. INCONTINENT OF URINE X1 SO FAR THIS AM-INCONTIENT CARE PROVIDED AND NO SKIN BREAKDOWN NOTED UPON VISUALIZATION. TRANSFERS AND WILL WALK SHORT DISTANCES WITH SBA X1. DENIES PAIN. NO NOTED OR REPORTED COUGHMSHORTNESS OF BREATH. BS X4. BP THIS AM 154/92-RECHECK MANUALLY AFTER ADMINISTRATION OF AM BP MEDS IS 148/82. DENIES BROWN,VISUAL DISTURBANCE. BS AT -4770 69-DID TAKE APPROX 120 CC OF OJ AND HAD BREAKFAST -RECHECK OF BS AT 1045.
[2020-02-21 11:45] LABS: URINE BILIRUBIN NEGATIVE (Negative); URINE BLOOD TRACE (Negative); URINE CLARITY CLEAR; URINE COLOR YELLOW; URINE GLUCOSE-RANDOM* NEGATIVE (Negative); URINE KETONES NEGATIVE (Negative); URINE NITRITE-REFLEX NEGATIVE (Negative); URINE PROTEIN (DIPSTICK) 2+ (Negative); URINE UROBILINOGEN 0.2 E.U./dl (0.2-1.0)
[2020-02-21 11:47] LABS: URINE LEUKOCYTES-REFLEX 1+ (Negative)
[2020-02-21 11:57] LABS: SQUAMOUS >10 Many /LPF (0-3)
[2020-02-21 11:58] LABS: BACTERIA-REFLEX 1-9 Few /HPF (None Seen); CASTS None Seen /LPF (None Seen); CRYSTALS None Seen /LPF (None Seen); URINE RBC 0-2 Rare /HPF (0-2)
[2020-02-21 12:06] VITALS: BP 159/92
[2020-02-21 12:07] VITALS: BP 148/82
--- NOTE | 2020-02-21 15:28 | NUR ---
ASSISTED TO BED AND POSITIONED FOR COMFORT-VOIDING MODERATE AMOUNTS IN BSC-TOILET Q 2 HOURS. NO BLADDER DISTENSION NOTED. WHEN ASSISTED TO BED NOTED FACIAL GRIMACING AND MOANING-HOLDING HIP-UPPER THIGH ON LEFT SIDE-REPORTING PAIN-TYLENOL 450MG CRUSHED AND GIVEN PO PRN-BP RECHECK IN ANTICIP[ATION OF 1700 COREG REGISTERED HIGH ON MACHINE-RETAKEN MANUALLY AND IS 170/98-HYDRALAZINE 10MG PO PRN CRUSHED-RESISITVE WITH TAKING ALL OF MEDS CRUSHED STATING TASTES BITTER-DENIES BROWN/VISUAL DISTURBANCE-NO CHANGES IN ORIENTATION OR SPEECH,-RESTING QIOETLY IN BED
[2020-02-21 16:11] VITALS: BP 170/90
[2020-02-21 19:18] VITALS: BP 169/89
--- NOTE | 2020-02-21 20:13 | NUR ---
BLOOD PRESSURE RECHECK AT APPROX 1730 148/84 P-82-DOES REPORT SLIGHT IMPROVEMENT OF PAIN TO HIPS,JOINTS UNABLE TO RATE VERBALLY WHEN ASKED STATING "IT BETTER" ATE APPROX 75 PERCENT OF SUPPER-DAUGHTER AT BEDSIDE
--- NOTE | 2020-02-22 02:37 | NUR ---
DROWSY LAST EVENING AND TAKING VERY LITTLE MEDS WITH APPLESAUCE. ABLE TO TAKE BP MED WITH ENCOURAGEMENT. DID WAKE UP AT 0100 FOR ABOUT 30 MINUTES AND SAID SHE WAS FINE, DID NOT HAVE PAIN, ONLY TALKED ONE OR 2 WORDS AT A TIME. FREQUENT OBSERVATION SHE IS IN VIEW OF THE NURSES STATION
[2020-02-22 08:00] VITALS: BP 153/97
--- NOTE | 2020-02-22 19:20 | NUR ---
HAS BEEN AMBULATING SHORT DISTANCES AND TRANSFERS TO AND FROM TOILET/COMMODE WITH SBA X1 TODAY. TOILET Q 2 HOURS AND HAS HAD 1 EPISODE OF URINARY INCONTINENCE AND INCONTINENT OF BM X1. RESTLESS AT TIMES AND SOMULENT AT TIMES-VARIABLE THROUGHOUT SHIFT. CONTINUES TO REQUIRE EXTENSIVE SUPERVISION AT ALL MEALS D/T POCKETING FOOD AND SHOVING MULTIPLE SPOONFULS IN MOUTH. DID TAKE PO MEDS CRUSHED TODAY. BP MILDLY ELEVATED AT 1630 PRIOR TO PM COREG AT 154/88-RECHECK AT 1815 BP 140/78
[2020-02-22 19:50] VITALS: BP 150/83
--- NOTE | 2020-02-23 03:26 | NUR ---
Assumed pt's care this pm shift. Pt alert and oriented x1. Confused. VSS on RA. Meds given per emar, crushed in applesauce. Pt currently in bed, sleeping. Pt sleeping well so far. Incontinent of bladder this shift. Incontinence monitor. Fall precautions in place. Will continue to monitor.
[2020-02-23 07:49] VITALS: BP 138/94
[2020-02-23 07:49] LABS: ABSOLUTE NEUTROPHILS 3.9 thou/uL (1.4-8.2); BASOPHILS 1.1 % (0.0-2.0); EOSINOPHILS 1.7 % (0.0-3.0); HEMATOCRIT 35.6 % (37.0-47.0); HEMOGLOBIN 11.6 gm/dL (12.0-15.0); LYMPHOCYTES 35.2 % (24.0-44.0); MCH 27.2 pg (26.0-34.0); MCHC 32.6 g/dL (28.0-37.0); MCV 83.5 fL (80.0-100.0); RBC 4.27 mil/uL (4.20-5.00)
[2020-02-23 07:54] LABS: CALCIUM 9.5 mg/dL (8.5-10.1); CREATININE 2.6 mg/dL (0.6-1.0); MAGNESIUM 2.3 mg/dL (1.8-2.4)
[2020-02-23 07:55] LABS: PLATELET COUNT 425 thou/uL (150-400)
--- NOTE | 2020-02-23 10:46 | NUR ---
CLARIFIED WITH AUTOMOBILE SERVICE STATION ATTENDANT REGUARDING ASPIRIN DOSE AND ALLERGY. AUTOMOBILE SERVICE STATION ATTENDANT STATED FINE TO GIVE DUE TO ALLERGY BEING RELATED TO NOSE BLEED.
[2020-02-23 13:33] VITALS: BP 141/91
--- NOTE | 2020-02-23 14:21 | NUR ---
ASSUMED CARE OF PT AT 0700. PT IS A&O TO PERSON ONLY. ACCU CHECK IN AM, RECHECKED AND WAS WNL. 100% SUPERVISION WITH PO INTAKE AND PO FLUIDS ENCOURAGED. URINARY OUTPUT DECREASED, BUT NO RESIDUAL NOTED WITH BLADDER SCAN. PT DOES NOT APPEAR TO BE IN PAIN AND DOES NOT VERBALIZE PAIN, PARTICIPATED IN SCHEDULED THERAPIES. FALL PRECAUTIONS IN PLACE AND NURSING WILL CONTINUE TO MONITOR.
--- NOTE | 2020-02-23 16:24 | H ---
[facility] [place] [address] HISTORY AND PHYSICAL Name: DELL MANDUJANO Room #: 513-P ADM IN M.R.#: [id number] Admission: 02/13/20 Attend Phys: Chaz Brunner MD Discharge: Date of : 56 Report #: [id number] THIS REPORT FOR: cc: Nate Morel MD,Nate Brunner,Chaz Larkin MD ~ CC: Chaz Morel DATE OF SERVICE: 02/13/2020 HISTORY OF PRESENT ILLNESS: The patient is a 59-year-old -Chinese female who was originally admitted to [facility] on 02/08/2020 with concerns for a new CVA with some left-sided weakness, left facial droop. She was noted to have an elevated creatinine of 3.2, BUN was 60. Blood pressure was extremely elevated up to 246/106. She was placed on the nicardipine drip. Neurology was consulted. Carotid ultrasounds showed no acute process. Hemoglobin A1c was 5.7. She was diagnosed with a subacute right basal ganglia CVA along with hypertensive encephalopathy, left hemiparesis, uncontrolled hypertension, history of chronic lacunar infarcts, pontine infarct and chronic encephalomalacia. She was gradually stabilized as far as her blood pressure medication and some of her renal function. She was upgraded from the nectar thick to thin liquids. She was felt to be ready and has now been admitted for acute in-hospital inpatient rehabilitation. PAST MEDICAL HISTORY: Includes prior history of leaving [place] on 01/16/2020 from [facility] after diagnosis of acute renal insufficiency, lower extremity edema on admission was recommended at that time. Past medical history otherwise includes hypertension, diabetes mellitus. She has one kidney. HABITS: Noted to be current every day smoker. No history of alcohol abuse. MEDICATIONS: Please see the full medication listing. ALLERGIES: ASPIRIN. SOCIAL HISTORY: Noted to live at home with her who works. Daughter noted to check in daily. She is currently receiving home health care prior to admission. She used to front-wheeled walker, but could complete her ADLs independently per report. There was a clarification that her prior level of function included daughter, son, spouse providing 24-hour supervision and supervised ADLs. She did not use an assistive device and was able to ambulate up until recently. REVIEW OF SYSTEMS: No current complaints of chest pain, shortness of breath or abdominal discomfort. [address] [address] HISTORY AND PHYSICAL Name: DELL MANDUJANO Room #: 513-P [facility] IN .R.#: [id number] Admission: 02/13/20 Attend Phys: Chaz Brunner MD Discharge: Date of : 56 Report #: [id number] PHYSICAL EXAMINATION: GENERAL: A 59-year-old -Chinese female in no obvious distress. VITAL SIGNS: Last recorded temperature 97.6, pulse 82, respirations 20, and blood pressure 186/102. NEUROLOGIC: The patient is alert. She is pleasant, somewhat of a flat affect. She has a depressed left nasolabial fold. HEENT: Otherwise appeared to be benign. She is of small stature and slight of build. CHEST: Sounded clear to auscultation. CARDIOVASCULAR: Regular rate and rhythm. ABDOMEN: Bowel sounds positive, nontender. GENITOURINARY AND RECTAL: Deferred. EXTREMITIES: She has functional range of motion. Strength of the right upper and right lower extremity. Left upper extremity reveals some decreased use, some decreased coordination probably grade 4-/5. Left lower extremity is probably 4-/5. She is mod assist coming to stand, mod assist to ambulate a short distance with a front-wheeled walker. She may have some left hand tremoring. No distal lower extremity edema. ASSESSMENT: A 59-year-old -Chinese female with the following problem list: 1. Subacute right basal ganglia cerebrovascular accident. 2. Left hemiparesis. 3. Uncontrolled hypertension. 4. History of chronic lacunar infarct with pontine infarct. 5. Chronic encephalomalacia. 6. Acute renal insufficiency superimposed on chronic kidney disease. 7. Dementia. Currently on Seroquel being monitored by Psychiatry. 8. Diabetes mellitus type 2. PLAN: The patient has been admitted for acute in-hospital inpatient rehabilitation. Of note, her renal function has improved from a creatinine high of 3.2, down to 2.2. The patient is involved in the interdisciplinary acute inpatient rehabilitation program with goal maximizing her functional independence, so that she can hopefully return back to her prior living situation. Please see the above noted previous and current functional status. As far as risk of complication, she has multiple medical comorbidities and will need to be followed by the multiple net developer consultant physicians. Initial plan of care involves the interdisciplinary acute rehabilitation program. Measurable functional goals would be to see improvement as far as left-sided strength and coordination and improvement as far as mobility, ADLs and communication, cognition. She also has some noted swallowing problems with dysphagia and is on a diabetic diet. No mixed consistencies with no straws noted. Speech therapy will continue to follow in [address] [address] HISTORY AND PHYSICAL Name: DELL MANDUJANO Room #: 513-P ADM IN M.R.#: [id number] Admission: 02/13/20 Attend Phys: Chaz Brunner MD Discharge: Date of : 56 Report #: [id number] that regard as well. Prognosis is reasonably good with estimated length of stay probably at least 10 days to 2 weeks and likely longer if warranted. Potential barriers would include her multiple medical comorbidities and decreased functional status. The patient meets diagnostic criteria for an acute in-hospital inpatient rehabilitation stay. She meets the medical necessity criteria. She does have the tolerance for therapies and has appropriate discharge goals back to the home setting. <ELECTRONICALLY SIGNED> By: Chaz Brunner MD 02/23/20 1624 [id number] Chaz Brunner MD /nt
--- NOTE | 2020-02-23 16:25 | PLAN ---
[facility] [place] [address] REHAB UNIT PLAN OF CARE Name: DELL MANDUJANO Room #: 513-P ADM IN M.R.#: [id number] Admission: 02/13/20 Attend Phys: Chaz Brunner MD Discharge: Date of : 56 Report #: [id number] THIS REPORT FOR: //name// CC: Chaz Morel DATE OF SERVICE: 02/16/2020 PROGRESS NOTE/OVERALL PLAN OF CARE SUBJECTIVE: The patient is seen back today in followup. She is alert, pleasant. OBJECTIVE: VITAL SIGNS: Temperature 97.2, pulse 72, respirations 16, blood pressure 162/94. GENERAL: Transfers are min assist with gait min assist 170 feet front-wheeled walker. Lower body dressing is mod assist. She has been seen by speech therapy, she is on a pureed diet with thin liquids. She used a 4-wheeled walker premorbidly. She is pleasant and is tolerating therapies well. ASSESSMENT: 1. Subacute right basal ganglia cerebrovascular accident. 2. Left hemiparesis. 3. Uncontrolled hypertension. 4. History of chronic lacunar infarct with pontine infarct. 5. Chronic encephalomalacia. 6. Acute renal insufficiency superimposed on chronic kidney disease. 7. Dementia. 8. Diabetes mellitus. PLAN: The overall plan of care includes the followin. Estimated length of stay is probably at least 10 days to 2 weeks. 2. Medical prognosis is reasonably good. 3. Anticipated interventions include the interdisciplinary acute inpatient rehabilitation program. 4. Anticipated functional outcomes would be for the patient to become modified independent with transfers, mobility, ADLs and improvement with cognition, communication, so that she can hopefully return back to her prior living situation. 5. Discharge destination would be back home with her who works. Daughter checks in daily. 6. Expected therapy by discipline includes PT, OT and speech 1 hour per day [address] [address] REHAB UNIT PLAN OF CARE Name: DELL MANDUJANO Room #: 513-P ADM IN [facility].#: [id number] Admission: 02/13/20 Attend Phys: Chaz Brunner MD Discharge: Date of : 56 Report #: [id number] each five days a week throughout the duration of the acute inpatient rehabilitation stay. <ELECTRONICALLY SIGNED> By: Chaz Brunner MD 02/23/20 1625 [id number] Chaz Brunner MD /[facility]
[2020-02-23 20:04] VITALS: BP 137/80
--- NOTE | 2020-02-24 03:45 | NUR ---
assumed care approx 1900 evening 02/22. pt sitting up in w/c at change of shift alert and awake. pt pleasantly confused yet cooperative in chair. pt took meds crushed in pudding tolerating well. pt assisted with turning and repositioning. pt appears to be sleeping soundly with hourly rounding checks. bed alarm on and call light in reach. will continue to monitor.
[2020-02-24 08:00] VITALS: BP 177/99
--- NOTE | 2020-02-24 12:39 | NUR ---
ASSUMED CARE AT 0700. PT HAD UNEVENTFUL NIGHT AND SLEPT WELL. ALERT AND ORIENTATED TO SELF. EASILY REDIRECTED AND FOLLOW INSTRUCTIONS. DENIES ANY PAIN. UP WITH ASSIST WITH WALKER AND WALKED WITH NURSING TODAY. APPETITE HAS IMPROVED AND IS ABLE TO SELF FEED. EATS 75 - 100% OF HER MEALS. TOOK ALL HER MEDS CRUSHED IN APPLE SAUCE WITHOUT ANY DIFFICULTY. PT IS UP IN WC AND CLOSE TO NURSES STATION AND UNDER SUPERVISION FOR ALL MEALS. NO SIGNS OF IMPULSIVENESS OR COMBATIVE. WILL CONT TO MONITOR.
[2020-02-24 19:29] VITALS: BP 156/82
--- NOTE | 2020-02-24 22:47 | NUR ---
PT ALERT AND ORIENTED X 1, CONFUSED. TAKES MEDS CRUSHED IN APPLESAUCE WITHOUT DIFFICULTY. INCONT OF URINE. PT DENIES PAIN OR DISCOMFORT. BED ALARM ON FOR SAFETY. PT APPEARS TO BE SLEEPING ON HOURLY ROUNDS.
[2020-02-25 08:00] VITALS: BP 217/106
--- NOTE | 2020-02-25 12:46 | NUR ---
PT ALERT AND ORIENTED TIMES THREE WITH PERIODS OF CONFUSION. PT DENIES PAIN/SOA. PT UP SITTING IN THE WHEEL CHAIR FOR SOME PART OF THE SHIFT. PT SLOWLY PROGRESSING TOWRADS POC GOALS.
[2020-02-25 15:59] VITALS: BP 158/90
[2020-02-25 19:00] VITALS: BP 145/82
--- NOTE | 2020-02-25 20:40 | HC ---
[facility] [place] [address] CONSULTATION Name: DELL MANDUJANO Room #: 513-P ADM IN M.R.#: [id number] Admission: 02/13/20 Attend Phys: Chaz Brunner MD Discharge: Date of : 56 Report #: [id number] THIS REPORT FOR: cc: Nate Morel MD, John MD Deutch,Efrain Constantino. PhD ~ DATE OF SERVICE: 02/17/2020 NEUROBEHAVIORAL STATUS EXAM ATTENDING PHYSICIAN: Chaz Brunner MD. AUTOMOTIVE TIRE TESTING SUPERVISOR: Efrain Perez, PhD. CLINICAL PRESENTATION: The patient is a 59-year-old female originally admitted to [facility] on 02/08/2020 with concern regarding a CVA with left-sided weakness. She presented with a left facial droop. Her blood pressure was severely elevated and she was diagnosed with a subacute right basal ganglia CVA along with hypertensive encephalopathy, left hemiparesis, uncontrolled hypertension, history of lacunar infarction, pontine infarct with chronic encephalomalacia. Her blood pressure was stabilized and she was readmitted to the rehabilitation unit. She has a history that includes leaving AMA on 01/16/2020 from [facility] after a diagnosis of acute renal insufficiency. Her assessment on admission to the rehab unit is a subacute right basal ganglia cerebrovascular accident (CVA), left hemiparesis, uncontrolled hypertension, history of chronic lacunar infarction with a pontine infarct, chronic encephalomalacia, acute renal insufficiency, dementia, currently on Seroquel, diabetes mellitus type 2. Neuro-psychological consultation was requested to provide assistance in the assessment of cognitive and emotional status and to provide recommendations and services. Prior to this most recent admission, the patient was living at her home with her . The patient has 2 children. She has needed help with basic and instrumental activities of daily living. However, this help is reported as having been necessary for only about one month, suggesting a more abrupt deterioration in functioning. Her daughter indicates that she was driving and independent with all activities of daily living. She was emplyed by the [facility] prior to requiring disability. The patient has been on Disability for many years. She is reported to have had previous treatment for depression. There is no alcohol or drug abuse reported. Her daughter describes her as lacking motivation. [facility] [address] [place] [address] CONSULTATION Name: DELL MANDUJANO Room #: 513-P [facility] IN M.R.#: [id number] Admission: 02/13/20 Attend Phys: Chaz Brunner MD Discharge: Date of : 56 Report #: [id number] TECHNIQUES UTILIZED: Clinical interview, review of medical records, staff consultation and behavioral observation, and interview with daughter. EXAMINATION FINDINGS: The patient was minimally responsive during the assessment. She appeared quite lethargic and drowsy and required multiple attempts to maintain attention. She was not oriented to time or place. The patient often perseverated in responses. Frontal lobe deficits are suggested by the extent of her perseveration. Attention and concentration was severely impaired. Naming was poor. She was unable to comply with repetition. Auditory comprehension is inconsistent. She could not read and follow a single command or write a sentence. Additionally, the patient was unable to copy a simple geometric design. The patient is presenting with severe deficits in cognition. This may be consistent with delirium. The acute nature of her declining cognition may be related to a CVA. DIAGNOSTIC IMPRESSION: Delirium, hypoactive, acute. 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 RECOMMENDATIONS: The patient will require assistance in the management of medication, finances and nutrition upon her discharge home. Following the resolution of the delirium, a more thorough neuropsychological assessment can help clarify the severity of cognitive deficits. The patient is described as very somnolent during the day. She may benefit from a medication to improve wakefulness, e.g., Nuvigil or lowering sedating medication. Thank you very much for allowing me to provide the consultation on this patient. <ELECTRONICALLY SIGNED> By: Efrain Perez, PhD 02/25/200 [id number] Efrain Perez, PhD /nt
--- NOTE | 2020-02-25 21:25 | NUR ---
ASSUMED CARE OF PT AT 1850. PT IS A&O TO SELF. IS ON ROOM AIR. DENIES PAIN. IS STABLE. CONTINUES TO HAVE RIGHT SIDED WEAKNESS. IS UPW ITH 1 ASSIST, GB, WALKER. FALL PRECAUTIONS & HOURLY ROUNDING CONTINUED THIS SHIFT. LABS REVIEWED. VITALS ASSESSED. PT IS INCONTINENT TO BOTH B&B. IS ABLE TO TURN SELF IN BED. IS ACROSS FROM NURSE STATION. PT IS CURRENTLY SLEEPING. CALL LIGHT WITHIN REACH. WILL CONTINUE TO MONITOR.
[2020-02-26 07:30] VITALS: BP 171/92
--- NOTE | 2020-02-26 13:41 | NUR ---
ASSUMED CARE AT 0700. PT IS ALERT TO SELF ONLY. PER REPORT, PT SLEPT WELL LAST NIGHT. BLOOD SUGAR 74 THIS MORNING AND SHE ATE 100% OF HER BREAKFAST. PT DENIES ANY PAIN. TOOK ALL HER MEDS WITH FREQUENT CUEING AND ABLE TO TOLERATE ALL. PARTICIPATING IN THERAPIES. UP FOR MEALS WITH SUPERVISION. WILL CONT TO MONITOR.
[2020-02-26 16:37] VITALS: BP 174/96
[2020-02-26 19:41] VITALS: BP 192/94
[2020-02-26 22:12] VITALS: BP 152/84
--- NOTE | 2020-02-27 00:43 | NUR ---
PT ASSESSMENT COMPLETED. MEDS GIVEN ORDERED AND WELL TOLERATED. FALL PRECAUTIONS IN PLACE. TIRED THIS EVENING. BP ELEVATED. PRN BP MEDICATION WORKING WELL. ASST WITH REPOSITION. INC OF URINE. SLEEPING WELL. WILL CONTINUE TO MONITOR FREQUENTLY.
[2020-02-27 05:39] LABS: BASOPHILS 1.4 % (0.0-2.0); EOSINOPHILS 2.1 % (0.0-3.0); HEMATOCRIT 30.6 % (37.0-47.0); LYMPHOCYTES 41.6 % (24.0-44.0); MCH 27.4 pg (26.0-34.0); MCHC 32.7 g/dL (28.0-37.0); MCV 83.8 fL (80.0-100.0); MONOCYTES 5.4 % (1.0-8.0); PLATELET COUNT 349 thou/uL (150-400); POLYS 49.5 % (36.0-66.0); RBC 3.65 mil/uL (4.20-5.00); RDW 12.7 % (10.5-14.5)
[2020-02-27 05:58] LABS: CREATININE 2.5 mg/dL (0.6-1.0); MAGNESIUM 2.3 mg/dL (1.8-2.4); POTASSIUM 4.7 mmol/L (3.5-5.1)
[2020-02-27 07:47] VITALS: BP 189/107
[2020-02-27 09:00] VITALS: BP 132/71
--- NOTE | 2020-02-27 13:55 | NUR ---
called and requested a call back. team meeting, reccomendation: she will need someone with her when doing her adl's, lots of physical clues. safty with dme use. puree diet and thin liquids. [facility] home [facility]. daughter coming in for training with therapy today. [facility] ( pt, ot, st, nurse and sw). will fww for dc. 24hr tire care manager assistances.
[2020-02-27 19:09] VITALS: BP 158/82
--- NOTE | 2020-02-27 20:13 | NUR ---
ASSUMED CARE OF PT AT 0700. PT IS A&O TO PERSON. PT DENIES PAIN AND PARTICIPATED IN SCHEDULED TEHRAPIES. PT UP WITH 100% SUPPERVISION FOR ALL PO MEDICATIONS. ACCU CHECKS IN AM. FAMILY ON UNIT THIS AFTERNOON FOR TRAINING. SPOUSE CALLED THIS AM AND REQUESTED THAT NURSING CALL TOMORROW WHEN PT IS BEING DISCAHRGED FOR TRANSPORTATION HOME. FALL PRECAUTIONS IN PLACE AND NURSING WILL CONTIUE TO MONITOR.
--- NOTE | 2020-02-27 23:30 | NUR ---
PT ALERT AND ORIENTED X 1, CONFUSED. UP IN WC MOST OF EVENING. TRANSFERRED TO BED AT WITH ASSIST X 1. INCONT OF URINE. PT TAKES MEDS CRUSHED IN APPLESAUCE WITHOUT DIFFICULTY. PT DENIES PAIN OR DISCOMFORT. BED ALARM ON FOR SAFETY. PT APPEARS TO BE SLEEPING ON HOURLY ROUNDS.
[2020-02-28 07:48] VITALS: BP 167/97
[2020-02-28 10:04] VITALS: BP 167/97
--- NOTE | 2020-02-28 10:36 | NUR ---
ASSUMED CARE AT 0700. PT IS ALERT TO SELF ONLY. DENIES ANY PAIN. SLEPT WELL LAST NIGHT. BG 82 THIS MORNING AND SHE ATE 100% OF HER MEALS WITH SUPERVISION. TOOK HER AM MEDS WITHOUT ANY DIFFICULTY. UP IN WC AND SITTING CLOSE TO NURSES STATION. NO CONCERNS AT THIS TIME. CONT TO MONITOR. PLAN FOR DC HOME TODAY WITH HH.
[2020-02-28] MEDS ORDERED: FOLIC ACID1 MG PO ×2 (10:51)
[2020-02-28] MEDS ORDERED: COREG6.25 MG PO ×2 (10:51)
[2020-02-28] MEDS ORDERED: MIRALAX17 GM PO ×2 (10:51)
[2020-02-28] MEDS ORDERED: SEROQUEL 25 MG25 MG PO ×2 (10:51)
[2020-02-28] MEDS ORDERED: COZAAR100 MG PO ×2 (10:51)
[2020-02-28] MEDS ORDERED: LIPITOR40 MG PO ×2 (10:51)
[2020-02-28] MEDS ORDERED: VITAMIN D350 MC3 PO ×2 (10:51)
[2020-02-28] MEDS ORDERED: CLOPIDOGREL75 MG PO ×2 (10:51)
[2020-02-28] MEDS ORDERED: AMLODIPINE BESY10 MG PO ×2 (10:51)
--- NOTE | 2020-02-28 15:53 | NUR ---
PT DISCHARGING TODAY TO HOME WITH [facility] FAXED DC ORDERS/SUMMARY RECEIVED CONFIRMATION AND SPOKE WITH ODESSA IN INTAKE SHE WILL CALL PT TO ARRANGE VISITS.
== END 2020-02-28 14:05 | disposition home health service (06) | DRG 56 ==
PROVIDERS: Nurse Practitioner; Nurse Practitioner Family; Psychiatry & Neurology Psychiatry; ADMIT Physical Medicine & Rehabilitation; ATTEND Physical Medicine & Rehabilitation
DX: I69.354 Hemiplegia and hemiparesis following cerebral infarction affecting left non-dominant side (principal); I63.9 Cerebral infarction, unspecified; N17.9 Acute kidney failure, unspecified; E44.0 Moderate protein-calorie malnutrition; R13.10 Dysphagia, unspecified; N18.9 Chronic kidney disease, unspecified; I12.9 Hypertensive chronic kidney disease with stage 1 through stage 4 chronic kidney disease, or unspecified chronic kidney disease; E11.22 Type 2 diabetes mellitus with diabetic chronic kidney disease
CPT/HCPCS: 10112